=== PATIENT | male | born 1985 | race Caucasian/White ===

== ENCOUNTER 2024-11-01 09:15 | Emergency (ER) | payer SELFPAY ==
--- NOTE | 2024-11-01 09:17 | ED_ITS ---
HPI - Wound/Laceration General Chief Complaint: Wound/Laceration Stated Complaint: cut on right foot Time Seen by Provider: 11/01/24 09:46 Source: patient, RN notes reviewed and old records reviewed Mode of arrival: ambulatory Limitations: no limitations History of Present Illness HPI narrative: 39-year-old male presents to the [facility] with a cut to the right foot. States that he to get a this morning, was in his truck and cut it on a piece of metal. Unknown last Tdap Related Data Allergies Allergy/AdvReac Type Severity Reaction Status Date / Time No Known Allergies Allergy Verified 11/01/24 09:56 Review of Systems Review of Systems: All systems reviewed & are unremarkable except as noted in HPI and below Constitutional: Constitutional: Reports no additional constitutional complaints ENT: Reports system reviewed and no additional complaints, except as documented Cardiovascular: Cardiovascular: Reports no additional cardiovascular complaints, Denies chest pain and Denies dyspnea Respiratory: Respiratory: Reports no additional respiratory complaints, Denies chest congestion, Denies cough and Denies dyspnea Musculoskeletal: Musculoskeletal: Reports no additional musculoskeletal complaints Integumentary/Breasts: Skin/Breast: Reports as per HPI PMFSH Comments At the time of my signature, I reviewed and agree with the nursing past medical, surgical, social, and family history. There is no relevant family history pertinent to the patient complaint. Exam Const: General: cooperative, healthy appearing, comfortable, no acute distress, well developed, alert and well nourished Nutritional Appearance: well nourished Orientation/consciousness: patient oriented x3 Limitations: no limitations HENMT: Head: normal to inspection Eyes: General: appearance normal, both eyes and all related structures Alignment and Position: alignment normal Neck: Neck: normal visual inspection, full ROM, no lymphadenopathy and no meni ngeal signs Chest: Chest palpation & inspection: normal inspection of the chest Resp: Effort & Inspection: normal respiratory effort and able to speak in complete sentences Cardio: Rate: regular rate Skin: General skin exam: normal color and no rashes or lesions noted Wounds: wounds noted laceration right dorsal , laceration right dorsal foot size (5cm) and open; no drainage Neuro: General: patient oriented x3, gait normal, moves all extremities and no meningeal signs Cognition (Neuro): normal cognition Speech: normal speech Gait exam (Neuro): Normal gait present Extrem: General: normal to inspection, full ROM, capillary refill normal and normal gait Psych: Appearance: grossly normal and well kempt Mental Status: mental status grossly normal Speech and movement: Normal speech and movement present and Clear speech present Affect: normal affect Attitude: cooperative Course Course Level of Care: Express Care Visit Vital Signs Vital signs: Vital Signs Temperature 98.6 F 11/01/24 09:24 Pulse Rate 102 H 11/01/24 09:24 Respiratory Rate 16 11/01/24 09:24 Blood Pressure 146/109 H 11/01/24 09:24 Pulse Oximetry 98 11/01/24 09:24 Oxygen Delivery Room Air 11/01/24 09:24 Temperature 98.6 F 11/01/24 09:24 Pulse Rate 102 H 11/01/24 09:24 Respiratory Rate 16 11/01/24 09:24 Blood Pressure 146/109 H 11/01/24 09:24 Pulse Oximetry 98 11/01/24 09:24 Oxygen Delivery Room Air 11/01/24 09:24 Reviewed Procedures Laceration Laceration 1: Date: 11/01/24 Time: 10:05 Site: lower extremity (foot) Side (If applicable): right Size (cm): 5 Description: flap and irregular Depth: simple, single layer Local Anesthetic: lidocaine 1% Amount of anesthesia used (mL): 500 Pre-repair: wound explored and irrigated (500) ====== Skin Level ====== Skin layer closed with: vicryl Number of sutures: 8 Technique: simple, interrupted ====== Subcutaneous Layer ====== ====== Muscle Layer ====== ====== Tendon Layer ====== Dressing: Procedure explained, verbal consent obtained. White area with Betadine, injected lidocaine, irrigated with 500 mils of saline. No foreign bodies noted Eight sutures placed Patient tolerated procedure well MDM - Wound/Laceration MDM Narrative Medical decision making narrative: Patient sitting in exam room. Patient is nontoxic, vitals are stable. Patient presents with laceration to her foot. Area cleaned, irrigated, sutures placed Wound was approximated, due to length of time the wound has been open brought wound together Tetanus updated Patient appropriate for outpatient treatment and follow-up, covering with antibiotics Discharge instructions reviewed with patient, as well as provided in writing per nursing staff. The instructions also include specific and strict return/GO TO THE ER as well as f/u information. All questions have been answered, and the patient deny any further questions with discharge and discharge plan. Some parts of this dictation were generated by voice recognition software and may contain typographical and/or grammatical inaccuracies. Differential Diagnosis Differential diagnosis: Likely laceration, abrasion and avulsion of skin Critical Care Time Critical Care Time Critical Care Time: No Discharge Plan Discharge Clinical Impression: Vaccine for [id number], combined Laceration of foot Qualifiers: Encounter type: initial encounter Laterality: right Qualified Code(s): S91.311A - Laceration without foreign body, right foot, initial encounter Patient Disposition: Home Condition: Stable Instructions: Antibiotic Form, Laceration (ED) Additional Instructions: Keep area clean and dry. Wash with warm soapy water, pat dry. Do not scrub the wound itself. For the 1st week do not put any type of bacitracin or Neosporin. When not at home, keep it covered with a dressing. When at home try leaving open to air at least 4-5 hours per day. Follow-up with primary care provider in 2 weeks to have the sutures removed. Today your blood pressure was 146/109 Taken antibiotic to reduce the chances of infection. Patient Language: [place] Prescriptions: New cephalexin 500 mg capsule 500 mg PO TID 7 Days Qty: 21 0RF Follow-up/Referrals: PHYSICIAN NOT ON STAFF,NONSTAFF [Primary Care Provider] - Time of Disposition: 10:36
[2024-11-01 09:24] VITALS: BP 146/109; PULSE 102; RESP 16; TEMP 37; O2SAT 98
[2024-11-01] MEDS: NACL 0.9% IRRIGATION POUR BOTTLE 500 ML IRRIGATION (10:08)
[2024-11-01] MEDS: LIDOCAINE 1% LOCAL INJ 2 ML AMPUL 8 ML INFILTRATE (10:08)
[2024-11-01] MEDS: TETANUS,DIPHTHERIA,AC PERTUSSIS ADULT (0.5 ML) BOOSTRIX IM (10:08)
== END 2024-11-01 10:45 | disposition home or self-care (01) ==
PROVIDERS: Emergency Provider Nurse Practitioner
DX: S91.311A Laceration without foreign body, right foot, initial encounter (principal); W45.8XXA Other foreign body or object entering through skin, initial encounter; Z23 Encounter for immunization
CPT/HCPCS: 12002; 90471; 90715; 99203; G0463; J2003